=== PATIENT | male | born 1980 | race Hispanic/Latino ===

== ENCOUNTER 2017-12-07 23:20 | Emergency (ER) | payer OTHER ==
--- NOTE | 2017-12-08 01:20 | XRay Report ---
FINAL REPORT EXAM: XR HAND 2V RT HISTORY: right hand injury TECHNIQUE: AP and lateral views of the right hand were submitted. FINDINGS: There is no evidence of acute fracture or soft tissue injury. The wrist joint is well maintained. There is slight deformity of the distal end of the 5th metacarpal suggesting the possibility of a remote fracture. Soft tissues are unremarkable. IMPRESSION: No acute injury.
[2017-12-08] MEDS ORDERED: MOTRIN PO ONE (06:42)
--- NOTE | 2017-12-08 06:42 | Emergency Department Report ---
Upper Extremity - HPI Chief Complaint: Extremity Injury, Upper Stated Complaint: RIGHT WRIST INJURY Upper Extremity: Right Hand (report right hand injury 2 days ago.) Occurred When: 2 Days Mechanism: Other (heavy object fell on hand) Symptoms: Yes Pain with Movement, Yes Swelling, No Deformity, No Limited Range of Movement, No Numbness, No Weakness, No Bruising/Ecchymosis, No Laceration or Abrasion Other History: She reported that he was at work on and a lift gate fell on his right hand. He said he is having pain 10 out of 10. No over-the- counter medication taken. Pain is better with rest and worse with movement ED Review of Systems ROS: Stated complaint: RIGHT WRIST INJURY Other details as noted in HPI Comment: All other systems reviewed and negative Constitutional: no symptoms reported Respiratory: no symptoms reported Cardiovascular: denies: chest pain, palpitations, dyspnea on exertion, orthopnea , edema, syncope, paroxysmal nocturnal dyspnea Gastrointestinal: denies: abdominal pain, nausea, vomiting, diarrhea, constipation, hematemesis Musculoskeletal: joint swelling, arthralgia. denies: back pain, myalgia Skin: denies: rash Neurological: denies: headache, weakness, numbness, paresthesias ED Past Medical Hx - Past Medical History Previous Medical History?: No - Surgical History Past Surgical History?: Yes Additional Surgical History: right ankle - Family History Family history: no significant - Social History Smoking Status: Current Every Day Smoker Substance Use Type: None - Medications Home Medications: Home Medications Medication Instructions Recorded Confirmed Last Taken Type Acetaminophen/Codeine [Tylenol 1 tab PO Q6H PRN #12 tab 12/08/17 Unknown Rx /Codeine # 3 tab] Ibuprofen [Motrin] 600 mg PO Q8H PRN 5 Days #15 tablet 12/08/17 Unknown Rx Upper Extremity Exam - Exam General: Vital signs noted. No distress. Alert and acting appropriately. This is a 37-year-old male well-nourished well-developed in no acute distress. Head and Torso: No HEENT Abnormality, No Neck Tenderness, No Chest/Lungs Abnormality, No Abdominal Tenderness, No Back Tenderness Shoulder Exam: Yes Normal Range of Motion in Shoulder, No Shoulder Tenderness, No Clavicle Tenderness, No Shoulder Deformity, No AC Joint Tenderness Arm Exam: No Arm/Humerus Tenderness, No Arm Deformity Elbow: Yes Normal Range of Motion in Elbow, No Elbow Tenderness, No Elbow Deformity Forearm: No Forearm Tenderness, No Forearm Deformity, No Pain with Pronation, No Pain with Supination Wrist: Yes Normal ROM in Wrist, No Wrist Tenderness, No Wrist Deformity, No Snuffbox Tenderness, No Pain with Axial Thumb Compression Hand: Yes Hand Tenderness (Tender to palpate and metacarpal bone area at the fourth and fifth metacarpal bone.), Yes Normal ROM in Digit(s), No Hand Deformity, No Digit Tenderness, No Digit(s) Deformity, No Tendon Dysfunction CMS Exam: Yes Normal Distal Pulses, Yes Normal Capillary Refill, Yes Normal Distal Sensation, No Broken Skin ED Course Vital Signs 12/07/17 23:27 Temperature 98.2 F Pulse Rate 80 Respiratory 18 Rate Blood Pressure 132/81 [Left] - Reevaluation(s) Reevaluation #1: 12/08/17 06:49 patient given Motrin 800 mg by mouth. Await in right ulnar gutter OCL splint. 12/08/17 06:49 12/08/17 06:50 - Orthopedic Splinting/Casting Injury #1 Side: right Upper Extremity Injury Location: hand Upper Extremity Immobilizer: ulnar gutter Additional Comments: Shows good color, sensation, movement and temperatures to fingers of right hand status post splint placement ED Medical Decision Making - Radiology Data Radiology results: report reviewed X-ray 2 views right hand revealed patient with slight deformity of the distal end of the fifth metacarpal suggests then the possibility of remote fracture. Soft tissues are normal. Radiologist read reported as no acute injury but patient with obvious bony tenderness to fourth and fifth metacarpal bone. - Medical Decision Making ED course: Patient with injury to right hand. He reports that metal gate fell on his right hand. X-ray report shows patient with possibility for Motrin at fifth metacarpal bone. Motrin 800 mg by mouth emergency room for pain. See procedure note for splinting and neurovascular checks status post splinting. X- ray results explained to patient and he voiced understanding. Patient to follow -up with orthopedic doctor and to 3 days. Patient given prescription for Tylenol 3 and Motrin. Critical care attestation.: If time is entered above; I have spent that time in minutes in the direct care of this critically ill patient, excluding procedure time. ED Disposition Clinical Impression: Arthralgia of right hand Fracture of fifth metacarpal bone of right hand Qualifiers: Encounter type: initial encounter Fracture type: closed Fracture morphology: unspecified fracture morphology Qualified Code(s): S62.306A - Unspecified fracture of fifth metacarpal bone, right hand, initial encounter for closed fracture Injury of right hand Qualifiers: Encounter type: initial encounter Qualified Code(s): S69.91XA - Unspecified injury of right wrist, hand and finger(s), initial encounter Disposition: - TO HOME OR SELFCARE Is pt being admited?: No Does the pt Need Aspirin: No Condition: Stable Instructions: Hand Fracture (ED), Splint Care (ED), Arthralgia (ED) Additional Instructions: Please follow up with orthopedic doctor as instructed. Please do not remove splint or avoid getting splint wet. Discharge instructions and splint care. He can take Motrin for pain and she will add Tylenol 3 if pain is not relieved by Motrin. Prescriptions: Acetaminophen/Codeine [Tylenol /Codeine # 3 tab] 1 tab PO Q6H PRN #12 tab PRN Reason: Pain, Moderate (4-6) Ibuprofen [Motrin] 600 mg PO Q8H PRN 5 Days #15 tablet PRN Reason: Pain Referrals: RICARDO ROSENTHAL MD [Staff Physician] - 2-3 Days Forms: Accompanied Note, Work/School Release Form(ED)
[2017-12-08 07:51] VITALS: BP 124/72
== END 2017-12-08 07:53 | disposition home or self-care (01) ==
LOC: ED 23:20
DX: S62.306A Unspecified fracture of fifth metacarpal bone, right hand, initial encounter for closed fracture (principal); F17.200 Nicotine dependence, unspecified, uncomplicated; W22.09XA Striking against other stationary object, initial encounter; Y93.89 Activity, other specified; Y92.89 Other specified places as the place of occurrence of the external cause; Y99.8 Other external cause status